=== PATIENT | female | born 1990 | race Caucasian/White ===

== ENCOUNTER 2016-07-06 23:31 | Emergency (ER) | payer OTHER ==
--- NOTE | 2016-07-07 00:19 | ED ORDER SUMMARY ---
..... Patient: EVITA COLLINS OrderSheet [facility] VisitID: [id number] [address] [place] [address] 25y, F Registration Date/Time: 07/06/2016 ORDER SHEET Weight: 90.7 kg Allergies: Methadone GENERAL ORDERS: MEDICATION ORDERS: Doxycycline Hyclate PO 100 mg (NOW) (00:17 07/07/2016 Lola Reich) (Ack 0:17 JDeElena R.N.) (0:19 JDeElena R.N.) IV FLUIDS: ORDER SHEET NOTES: [Electronically signed by Indira Swift R.N. (00:23 07/07/2016)] [Electronically signed by García Kelsey Dr. (07:21 07/08/2016)] [Electronically locked/signed by Indira Swift R.N. (00:23 07/07/2016)]
--- NOTE | 2016-07-07 00:19 | ED NURSING NOTES ---
Clinical Report - Nurses [facility] [address] [place] [address] 07/06/2016 23:32 Patient: EVITA COLLINS TRIAGE Triage time 23:39. Acuity: LEVEL 4. Chief Complaint: LEFT LOWER EXTREMITY PAIN, SWELLING and REDNESS. --23:42 TonyaB, R.N. 23:39 07/06/16. BP: 121/62. HR: 86. RR: 16. O2 saturation: 100%. Temp: 97.8 F. Pain level now: 10/21. --23:42 TonyaB, R.N. Weight: 90.7 kg. Height/Length: 66 inches. BMI: 32.3. --23:42 TonyaB, R.N. Medications None. --23:39 TonyaB, R.N. Allergies Methadone. --23:39 TonyaB, R.N. History Arrived by private vehicle. Historian: patient. Accompanied by family. Injury occurred. This occurred (3 days). Treatment ASSISTANT ADMINISTRATOR: None. PAST MEDICAL HX: Tetanus status: up-to-date. Immunizations: up-to-date. Last normal menstrual period was 3 weeks ago- weeks. SOCIAL HX: Never smoker. No alcohol use or drug use. No infectious disease exposure. SELF HARM ASSESSMENT: A self harm assessment was performed. The patient answered "no" to the question "Have you recently felt down, depressed, or hopeless?", "Have you noticed less interest or pleasure in doing things?", "Do you have thoughts of harming or killing yourself?", "Are you here because you tried to hurt yourself?", "Have you ever tried to hurt yourself before today?", "Have you recently had thoughts about harming or killing others?" and "Do you have any dangerous items in your possession?". FALL RISK ASSESSMENT: Fall risk assessment completed. No fall risk identified. NUTRITIONAL RISK ASSESSMENT: The nutritional risk assessment revealed no deficiencies. FUNCTIONAL ASSESSMENT: Functional assessment: no impairments noted. LEARNING NEEDS ASSESSMENT: The learning needs assessment revealed no barriers. SKIN INTEGRITY ASSESSMENT: Skin integrity risk assessment completed. No skin integrity risk identified. --23:42 Lorie Horn PROBLEMS: Drug Addiction. --23:40 Lorie Horn Interventions ID band on patient. To treatment room. --23:42 Lorie Horn PHYSICAL ASSESSMENT Ambulatory to room. GENERAL / NEURO / PSYCH: Oriented X 4. Alert. Appears in no acute distress. EXTREMITIES: Extremity pulses are within normal limits. Extremities exhibit normal ROM. Neuro-vascular status intact to the extremity. Normal gait. Left knee: tenderness and erythema. SKIN: Skin intact. Skin is warm and dry. --23:43 Lorie Horn NURSING PROGRESS NOTES 00:19 07/07/2016 DOXYCYCLINE HYCLATE PO Tablets 100 mg given. Allergies verified and confirmed 5 rights. --00:19 Gaurav Diaz R.N. DISPOSITION / DISCHARGE Departure time: 00:23. Condition at departure: improved. No learning barriers present. Discharge instructions provided and reviewed with the patient. Reviewed warnings. Reviewed medication(s) side effects, precautions, dosing and course information. Prescription(s) given to the patient. Treatments reviewed. Reviewed referrals. Patient verbalized understanding. Written instructions provided in Yemeni. No diet instructions, activity restrictions, follow up contact number given or stop smoking instructions. No work note given or school note given. The patient was discharged by the physician. She was discharged home and accompanied by parent. She left the Emergency Department ambulatory and via private vehicle. Parent driving. FALL RISK ASSESSMENT: Fall risk assessment completed. No fall risk identified. --00:23 Lorie Horn 00:22 07/07/16. BP: deferred. HR: deferred. RR: deferred. O2 saturation: deferred. Temp: deferred. Pain level now deferred. --00:23 Lorie Horn Locked/Released at 07/07/2016 0:23 by Lorie Horn
--- NOTE | 2016-07-07 00:19 | ED NURSING NOTES ---
Clinical Report - Nurses [facility] [address] [place] [address] 07/06/2016 23:32 Patient: EVITA COLLINS TRIAGE Triage time 23:39. Acuity: LEVEL 4. Chief Complaint: LEFT LOWER EXTREMITY PAIN, SWELLING and REDNESS. --23:42 TonyaB, R.N. 23:39 07/06/16. BP: 121/62. HR: 86. RR: 16. O2 saturation: 100%. Temp: 97.8 F. Pain level now: 10/21. --23:42 TonyaB, R.N. Weight: 90.7 kg. Height/Length: 66 inches. BMI: 32.3. --23:42 TonyaB, R.N. Medications None. --23:39 TonyaB, R.N. Allergies Methadone. --23:39 TonyaB, R.N. History Arrived by private vehicle. Historian: patient. Accompanied by family. Injury occurred. This occurred (3 days). Treatment AIRLINE PILOT/FIRST OFFICER: None. PAST MEDICAL HX: Tetanus status: up-to-date. Immunizations: up-to-date. Last normal menstrual period was 3 weeks ago- weeks. SOCIAL HX: Never smoker. No alcohol use or drug use. No infectious disease exposure. SELF HARM ASSESSMENT: A self harm assessment was performed. The patient answered "no" to the question "Have you recently felt down, depressed, or hopeless?", "Have you noticed less interest or pleasure in doing things?", "Do you have thoughts of harming or killing yourself?", "Are you here because you tried to hurt yourself?", "Have you ever tried to hurt yourself before today?", "Have you recently had thoughts about harming or killing others?" and "Do you have any dangerous items in your possession?". FALL RISK ASSESSMENT: Fall risk assessment completed. No fall risk identified. NUTRITIONAL RISK ASSESSMENT: The nutritional risk assessment revealed no deficiencies. FUNCTIONAL ASSESSMENT: Functional assessment: no impairments noted. LEARNING NEEDS ASSESSMENT: The learning needs assessment revealed no barriers. SKIN INTEGRITY ASSESSMENT: Skin integrity risk assessment completed. No skin integrity risk identified. --23:42 Lorie Horn PROBLEMS: Drug Addiction. --23:40 Lorie Horn Interventions ID band on patient. To treatment room. --23:42 Lorie Horn PHYSICAL ASSESSMENT Ambulatory to room. GENERAL / NEURO / PSYCH: Oriented X 4. Alert. Appears in no acute distress. EXTREMITIES: Extremity pulses are within normal limits. Extremities exhibit normal ROM. Neuro-vascular status intact to the extremity. Normal gait. Left knee: tenderness and erythema. SKIN: Skin intact. Skin is warm and dry. --23:43 Lorie Horn NURSING PROGRESS NOTES 00:19 07/07/2016 DOXYCYCLINE HYCLATE PO Tablets 100 mg given. Allergies verified and confirmed 5 rights. --00:19 Gaurav Diaz R.N. DISPOSITION / DISCHARGE Departure time: 00:23. Condition at departure: improved. No learning barriers present. Discharge instructions provided and reviewed with the patient. Reviewed warnings. Reviewed medication(s) side effects, precautions, dosing and course information. Prescription(s) given to the patient. Treatments reviewed. Reviewed referrals. Patient verbalized understanding. Written instructions provided in Serbian. No diet instructions, activity restrictions, follow up contact number given or stop smoking instructions. No work note given or school note given. The patient was discharged by the physician. She was discharged home and accompanied by parent. She left the Emergency Department ambulatory and via private vehicle. Parent driving. FALL RISK ASSESSMENT: Fall risk assessment completed. No fall risk identified. --00:23 Lorie Horn 00:22 07/07/16. BP: deferred. HR: deferred. RR: deferred. O2 saturation: deferred. Temp: deferred. Pain level now deferred. --00:23 Lorie Horn Locked/Released at 07/07/2016 0:23 by Lorie Horn
--- NOTE | 2016-07-07 00:19 | ED CLINICAL REPORT ---
Clinical Report - Physicians/Mid Levels [facility] [address] [place] [address] 07/06/2016 23:32 Patient: EVITA COLLINS Time Seen: 0015; initial patient contact. Arrived- By private vehicle. Historian- patient. HISTORY OF PRESENT ILLNESS Chief Complaint: BOIL. This started past few days and is still present and worsening. It was gradual in onset and has been constant but is not gone now. It is described as painful. It has been located on the left knee. No cause has been identified. (Reports being able to express purulent material from the middle of the boil). Similar symptoms previously: Once. Recent medical care: Not recently seen/assessed. REVIEW OF SYSTEMS No fever, chills or joint pain. All systems otherwise negative, except as recorded above. PAST HISTORY See nurses notes. Tetanus immunization status is up-to-date. Medications: None. Allergies: Methadone. SOCIAL HISTORY Never smoker. No alcohol use or drug use. No recent travel. Is a local resident. ADDITIONAL NOTES The nursing notes have been reviewed. PHYSICAL EXAM Vital Signs: 07/06/2016 23:39 BP: 121/62. HR: 86. RR: 16. O2 saturation: 100%. Temp: 97.8 F. Pain level now: 7/10. Blood pressure normal. Oxygen saturation normal. Appearance: Alert. Oriented X3. No acute distress. Eyes: Pupils equal, round and reactive to light. Conjunctivae and eyelids normal. ENT: Ears normal. Nose normal. Pharynx normal. Neck: Neck supple. CVS: Normal heart rate and rhythm. Heart sounds normal. Respiratory: No respiratory distress. Breath sounds normal. Chest nontender. Abdomen: Nontender. No organomegaly. Skin: Single small tender indurated area to right knee (anterior). Small area of cellulitis to left knee (anterior). (small area of spontaneously draining serious fluid. no purulent material.). Extremities: Normal external inspection. Extremities nontender. PROGRESS AND PROCEDURES Course of Care: The patient is a pleasant 25-year-old female presenting for evaluation sialitis to the left anterior knee. Does not appear to be in the joint. Patient does not have any systemic symptoms at this time. The wound appears to be draining spontaneously. Bedside ultrasound was performed to evaluatefor any fluid collections which couldrepresent abscess and respond to incision and drainage. cobblestoning is present on ultrasound. No identifiable fluid pocket noted. When patient was informed of these findings, patient states that she was able to squeeze out a moderate amount of pus out of the wound prior to her arrival here in the emergency department. Because no identifiable fluid collection could be visualized with ultrasound, do not feel patient requires incision and drainage at this time. Patient be managed conservatively with antibiotics alone. Had discussion with patient in regards to her findings here in the emergency department as well as diagnosis, home care, follow-up, and return precautions. All questions have been answered. The patient expressed understanding of these instructions and was agreeable to them. First doesn't cirrhotics provided here in the emergency department. Patient is stable outpatient candidate. Patient appears reliable. Disposition: Discharged. Condition: good. CLINICAL IMPRESSION 07/06/2016 23:39 BP: 121/62. HR: 86. RR: 16. O2 saturation: 100%. Temp: 97.8 F. Pain level now: 7/10. Blood pressure normal. Oxygen saturation normal. Cellulitis of the left knee. Single abscess (acute). INSTRUCTIONS Warnings: GENERAL WARNINGS: Return or contact your physician immediately if your condition worsens or changes unexpectedly, if not improving as expected, or if other problems arise. Specifically return if pain, vomiting, bleeding, breathing difficulty or fever. Your Current Medications: CONTINUE TAKING THE FOLLOWING MEDICATIONS: None*. Prescription Medications: Doxycycline 100 mg: Take 1 capsule orally every 12 hours for 10 days. No refill. (disp 20 caps) Follow-up: Return to the emergency department as needed. Follow up with your doctor in three days. Reason for referral: recheck today's concerns. Summary of care provided to patient via paper. Screening today revealed the patient's blood pressure to be in the normal range. The patient should follow up with a primary care provider for blood pressure management. Understanding of the discharge instructions verbalized by patient. (Electronically signed by García Kelsey Dr. 07/08/2016 7:21)
--- NOTE | 2016-07-07 00:19 | ED ORDER SUMMARY ---
..... Patient: EVITA COLLINS OrderSheet [facility] VisitID: [id number] [address] [place] [address] 25y, F Registration Date/Time: 07/06/2016 ORDER SHEET Weight: 90.7 kg Allergies: Methadone GENERAL ORDERS: MEDICATION ORDERS: Doxycycline Hyclate PO 100 mg (NOW) (00:17 07/07/2016 Lola Reich) (Ack 0:17 JDeElena R.N.) (0:19 JDeElena R.N.) IV FLUIDS: ORDER SHEET NOTES: [Electronically signed by Indira Swift R.N. (00:23 07/07/2016)] [Electronically signed by García Kelsey Dr. (07:21 07/08/2016)] [Electronically locked/signed by Indira Swift R.N. (00:23 07/07/2016)]
--- NOTE | 2016-07-08 07:21 | ED MED RECONCILIATION SUMMARY ---
Patient: EVITA COLLINS Medication Reconciliation Report [facility] VisitID: [id number] [address] [place] [address] 25y, F Registration Date/Time: 07/06/2016 Weight: 90.7 kg Height/Length: 66 in. BMI: 32.3 ALLERGIES: Methadone The patient's Home Medications are listed below: NONE. The source(s) of the original Home Medication information: Not obtained. The following Medications were given to the patient in the Emergency Department: DOXYCYCLINE HYCLATE [PO] PO 100 mg, administered: 07/07/2016 12:19:00 AM The following Medications were prescribed to the patient: Doxycycline 100 mg: Take 1 capsule orally every 12 hours for 10 days. No refill.(disp 20 caps) -- García Kelsey Dr.
--- NOTE | 2016-07-08 07:21 | ED DISCHARGE INSTRUCTIONS ---
Patient: EVITA COLLINS General Instructions [facility] VisitID: [id number] [address] [place] [address] 25y, F Registration Date/Time: 07/06/2016 07/06/2016 23:39 BP: 121/62. HR: 86. RR: 16. O2 saturation: 100%. Temp: 97.8 F. Pain level now: 7/10. Blood pressure normal. Oxygen saturation normal. Cellulitis of the left knee. Single abscess (acute). INSTRUCTIONS Warnings: GENERAL WARNINGS: Return or contact your physician immediately if your condition worsens or changes unexpectedly, if not improving as expected, or if other problems arise. Specifically return if pain, vomiting, bleeding, breathing difficulty or fever. Your Current Medications: CONTINUE TAKING THE FOLLOWING MEDICATIONS: None*. Prescription Medications: Doxycycline 100 mg: Take 1 capsule orally every 12 hours for 10 days. No refill. (disp 20 caps) Follow-up: Return to the emergency department as needed. Follow up with your doctor in three days. Reason for referral: recheck today's concerns. Summary of care provided to patient via paper. Screening today revealed the patient's blood pressure to be in the normal range. The patient should follow up with a primary care provider for blood pressure management. Understanding of the discharge instructions verbalized by patient. ADDITIONAL INFORMATION Cellulitis You have an infection of the skin known as cellulitis. This usually starts with a scrape, cut, insect bite, blister or other opening in the skin which becomes infected. This is a serious condition. It must be watched closely to be sure the infection is not spreading. With antibiotic treatment, the size of the red area will gradually shrink in size until the skin returns to normal. This will take 7-10 days. The red area should never increase in size once the antibiotic medicine has been started. Occasionally, an infection will be resistant to one antibiotic and another one will have to be used. Home Care: 1) Limit the use of the affected part, since excess movement can cause the infection to spread. 2) If the infection is on your leg, walk as little as possible during the first few days of the treatment. Keep your leg elevated while sitting. This will reduce swelling. 3) Take all of the antibiotic medicine exactly as directed until it is gone. Be careful not to miss any doses, especially during the first seven days. Follow Up with your doctor or this facility as directed. Check the infected area daily for the warning signs listed below. Get Prompt Medical Attention if any of the following occur: -- Spreading area of redness -- Increasing swelling or pain -- Appearance of pus or drainage -- Fever over 100.4 F (38.0 C) oral, or over 101.4 F (38.6 C) rectal, after two days on antibiotics Staph Infection (MRSA) "Staph" is the short name for the common bacteria called "staphylococcus aureus". Staph bacteria are often present on the skin without causing an infection. If it gets under the skin an infection occurs. This causes redness, tenderness, swelling and sometimes fluid drainage. MRSA stands for "Methicillin-Resistant Staph Aureus". Unlike a common staph infection, MRSA bacteria are resistant to the usual antibiotics and harder to treat. Also, MRSA is more toxic than common staph bacteria. It can spread quickly throughout the body and cause a life-threatening illness. MRSA is spread to others by direct physical contact with the bacteria. MRSA can also be transmitted from items contaminated by a person who has the bacteria, such as bandages, towels, bed sheets, or sports equipment. It is not spread through the air. Once you have a MRSA skin infection, you are at risk of having it recur in the future. If MRSA infection is suspected, the doctor may take a wound culture to confirm the diagnosis. Any abscess will be drained. One or sometimes two antibiotics that work against MRSA will be prescribed. Home Care: 1) Take any antibiotics prescribed exactly as directed until they are gone. 2) Follow the same washing procedures as outlined for Household Members below. 3) Keep draining wounds covered with clean, dry bandages. Change dressings as they become soiled. 4) You and those in contact with you should wash their hands frequently with soap and warm water or use an alcohol-based hand edi architect. Do this after each time you change the bandage or touch the wound. 5) Avoid sharing personal items such as towels, washcloths, razors, clothing, or uniforms. Wash soiled sheets, towels or clothes in hot water with laundry detergent. Use an automatic clothes dryer set on high to kill any remaining bacteria. 6) Remove any artificial nails and nail kyrgyz. 7) If you use a gym, wipe down equipment before and after each use. Treatment Of Household Members If you have been diagnosed with possible MRSA infection, those living with you are at higher risk of carrying the bacteria on their skin or in their nose, even if there is no sign of infection. Bacteria must be removed from the skin of all household members (including you) at the same time, so that it is not passed back and forth. Advise them to remove the bacteria as follows: Wash your whole body (scalp to toes) daily for five days with Hibiclens (chlorhexidine). Scrub fingernails with a brush for one minute twice a day. If any skin infections are present (boils, abscess, infected cut) these must be treated by a doctor. Washing alone will not treat a MRSA infection. Clean counter tops and children's toys; do not share personal items such as toothbrush and razors. It is okay to share glasses, plates, utensils. If antibiotic ointment was prescribed use it as directed. Follow Up with your doctor or as advised by our staff. If a wound culture was taken, call as directed in two days to obtain the results. If the culture result is positive for MRSA, tell medical personnel in the future that you were treated for this type of infection. Get Prompt Medical Attention if any of the following occur: -- Increasing redness, swelling or pain -- Red streaks in the skin around the wound -- Weakness or dizziness -- New appearance of pus or drainage from the wound -- New fever over 100.4 F (38.0 C) Abscess (Antibiotic Treatment Only) An abscess (sometimes called a boil) occurs when bacteria get trapped under the skin and begin to grow. Pus forms inside the abscess as the body responds to the bacteria. An abscess can occur with an insect bite, ingrown hair, blocked oil gland, pimple, cyst, or puncture wound. In the early stages, redness and tenderness are the only symptoms. Sometimes, this stage can be treated with antibiotics alone. If the abscess does not respond to antibiotic treatment, it will need to be drained with a small cut, under local anesthesia. Home care The following will help you care for your abscess at home: Soak the wound in hot water or apply hot packs (small towel soaked in hot water) to the area for 20 minutes at a time. Do this three to four times a day. Apply antibiotic cream or ointment onto the skin 3-4 times a day, unless something else was prescribed. Some ointments include an antibiotic plus a local pain reliever. If your doctor prescribed antibiotics, do not stop taking this medication until you have finished the prescribed course or the doctor tells you to stop. You may use an [id number] pain medication to control pain, unless another pain medicine was prescribed. If you have chronic liver or kidney disease or ever had a stomach ulcer or GI bleeding, talk with your doctor before using these any of these. Follow-up care Follow up with your health care provider as advised by our staff. Look at your wound each day for the signs of worsening infection listed below. When to seek medical care Get prompt medical attention if any of the following occur: An increase in redness or swelling Red streaks in the skin leading away from the abscess An increase in local pain or swelling Fever of 100.4F (38C) or higher, or as directed by your health care provider Pus or fluid coming from the abscess Doxycycline Monohydrate Oral tablet What is this medicine? DOXYCYCLINE (dox gian MIGUEL whitaker) is a tetracycline antibiotic. It kills certain bacteria or stops their growth. It is used to treat many kinds of infections, like dental, skin, respiratory, and urinary tract infections. It also treats acne, Lyme disease, malaria, and certain sexually transmitted infections. How should I use this medicine? Take this medicine by mouth with a full glass of water. Follow the directions on the prescription label. It is best to take this medicine without food, but if it upsets your stomach take it with food. Take your medicine at regular intervals. Do not take your medicine more often than directed. Take all of your medicine as directed even if you think you are better. Do not skip doses or stop your medicine early. Talk to your tipple mechanic regarding the use of this medicine in children. Special care may be needed. While this drug may be prescribed for children as young as 8 years old for selected conditions, precautions do apply. What side effects may I notice from receiving this medicine? Side effects that you should report to your doctor or health home care physical therapist as soon as possible: allergic reactions like skin rash, itching or hives, swelling of the face, lips, or tongue difficulty breathing fever itching in the rectal or genital area pain on swallowing redness, blistering, peeling or loosening of the skin, including inside the mouth severe stomach pain or cramps unusual bleeding or bruising unusually weak or tired yellowing of the eyes or skin Side effects that usually do not require medical attention (report to your doctor or health home care physical therapist if they continue or are bothersome): diarrhea loss of appetite nausea, vomiting What may interact with this medicine? antacids barbiturates control pills bismuth subsalicylate carbamazepine methoxyflurane other antibiotics phenytoin vitamins that contain iron warfarin What if I miss a dose? If you miss a dose, take it as soon as you can. If it is almost time for your next dose, take only that dose. Do not take double or extra doses. Where should I keep my medicine? Keep out of the reach of children. Store at room temperature, below 30 degrees C (86 degrees F). Protect from light. Keep container tightly closed. Throw away any unused medicine after the expiration date. Taking this medicine after the expiration date can make you seriously ill. What should I tell my health care provider before I take this medicine? They need to know if you have any of these conditions: liver disease long exposure to sunlight like working outdoors stomach problems like colitis an unusual or allergic reaction to doxycycline, tetracycline antibiotics, other medicines, foods, dyes, or preservatives or trying to get breast-feeding What should I watch for while using this medicine? Tell your doctor or health home care physical therapist if your symptoms do not improve. Do not treat diarrhea with over the counter products. Contact your doctor if you have diarrhea that lasts more than 2 days or if it is severe and watery. Do not take this medicine just before going to bed. It may not dissolve properly when you lay down and can cause pain in your throat. Drink plenty of fluids while taking this medicine to also help reduce irritation in your throat. This medicine can make you more sensitive to the sun. Keep out of the sun. If you cannot avoid being in the sun, wear protective clothing and use sunscreen. Do not use sun lamps or tanning beds/booths. control pills may not work properly while you are taking this medicine. Talk to your doctor about using an extra method of control. If you are being treated for a sexually transmitted infection, avoid sexual contact until you have finished your treatment. Your sexual partner may also need treatment. Avoid antacids, aluminum, calcium, magnesium, and iron products for 4 hours before and 2 hours after taking a dose of this medicine. If you are using this medicine to prevent malaria, you should still protect yourself from contact with mosquitos. Stay in screened-in areas, use mosquito nets, keep your body covered, and use an insect repellent. You have been given the following additional information: Cellulitis MRSA Skin Infection, Suspected Or Confirmed Abscess, Antiobiotic Treatment Only Doxycycline Monohydrate Oral tablet (Electronically signed by García Kelsey Dr. 07/08/2016 7:21)
--- NOTE | 2016-07-08 07:21 | ED MAR SUMMARY ---
..... Medication Administration Record [facility] [address] [place] [address] Patient: EVITA COLLINS Visit ID: [id number] 25y, F Weight: 90.7 kg Height/Length: 66 in BMI: 32.3 ALLERGIES: Methadone Given 00:19 07/07/2016 Gaurav Diaz R.N. Medication Administered: DOXYCYCLINE HYCLATE [PO], Dose: 100 mg Tablets PO. Medication Ordered: Doxycycline Hyclate PO 100 mg (NOW).
--- NOTE | 2016-07-08 07:21 | ED MED RECONCILIATION SUMMARY ---
Patient: EVITA COLLINS Medication Reconciliation Report [facility] VisitID: [id number] [address] [place] [address] 25y, F Registration Date/Time: 07/06/2016 Weight: 90.7 kg Height/Length: 66 in. BMI: 32.3 ALLERGIES: Methadone The patient's Home Medications are listed below: NONE. The source(s) of the original Home Medication information: Not obtained. The following Medications were given to the patient in the Emergency Department: DOXYCYCLINE HYCLATE [PO] PO 100 mg, administered: 07/07/2016 12:19:00 AM The following Medications were prescribed to the patient: Doxycycline 100 mg: Take 1 capsule orally every 12 hours for 10 days. No refill.(disp 20 caps) -- García Kelsey Dr.
--- NOTE | 2016-07-08 07:21 | ED MAR SUMMARY ---
..... Medication Administration Record [facility] [address] [place] [address] Patient: EVITA COLLINS Visit ID: [id number] 25y, F Weight: 90.7 kg Height/Length: 66 in BMI: 32.3 ALLERGIES: Methadone Given 00:19 07/07/2016 Gaurav Diaz R.N. Medication Administered: DOXYCYCLINE HYCLATE [PO], Dose: 100 mg Tablets PO. Medication Ordered: Doxycycline Hyclate PO 100 mg (NOW).
== END 2016-07-07 00:23 | disposition home or self-care (01) ==
LOC: ED SRH 23:31
DX: L03.116 Cellulitis of left lower limb (principal); Z88.8 Allergy status to other drugs, medicaments and biological substances